=== PATIENT | male | born 1950 | race Caucasian/White ===

== ENCOUNTER 2017-02-12 07:38 | Outpatient (CLI) | payer MEDICARE, OTHER ==
[2017-02-12 13:53] LABS: ALBUMIN/GLOBULIN RATIO 1.3 (1.0-2.2); CALCIUM 9.5 mg/dL (8.5-10.3); CREATININE 0.9 mg/dL (0.6-1.2); TOTAL PROTEIN 7.1 g/dL (6.7-8.2)
== END 2017-02-12 07:39 | disposition home or self-care (01) ==
LOC: LAB.WCP 07:38
PROVIDERS: ATTEND Family Medicine
DX: K21.9 Gastro-esophageal reflux disease without esophagitis (principal)
CPT/HCPCS: 36415; 80053; G0103; 84153

== ENCOUNTER 2017-12-30 13:09 | Emergency (ER) | payer MEDICARE, OTHER ==
[2017-12-30 13:30] VITALS: BP 132/81
--- NOTE | 2017-12-30 14:25 | XRAY Report ---
EXAM: RIGHT ANKLE RADIOGRAPHY EXAM DATE: 12/30/2017 02:02 PM. CLINICAL HISTORY: Trauma, pain. COMPARISON: None. TECHNIQUE: 3 views. FINDINGS: Bones: Nondisplaced slightly oblique fracture of lateral malleolus. Otherwise unremarkable. Joints: Symmetrical mortise. Small joint effusion. Soft Tissues: Prominent soft tissue swelling over lateral malleolus. IMPRESSION: Nondisplaced lateral malleolus fracture. [facility] Referring Provider Line: [phone] SITE ID: [id number]
--- NOTE | 2017-12-30 14:25 | XRAY Preliminary Report ---
Exam: XR ANKLE 3 VIEW RT IMPRESSION: Nondisplaced lateral malleolus fracture. [facility] SITE ID: [id number]
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
[2017-12-30] MEDS ORDERED: IBUPROFEN 600 MG TABLET PO STA (15:24)
[2017-12-30] MEDS ORDERED: HYDROcod/ACETAM 5/325 MG TABLET PO STA (15:24)
[2017-12-30] MEDS ORDERED: TETANUS/DIPHTHERIA/PERTUSSIS 0.5 ML SYRINGE IM ONE (16:04)
[2017-12-30] MEDS ORDERED: BACITRACIN OINT TOP ONE (16:07)
== END 2017-12-30 17:04 | disposition home or self-care (01) ==
LOC: ED 13:09
DX: S82.64XA Nondisplaced fracture of lateral malleolus of right fibula, initial encounter for closed fracture (principal); W20.8XXA Other cause of strike by thrown, projected or falling object, initial encounter; Y93.I9 Activity, other involving external motion; Y92.488 Other paved roadways as the place of occurrence of the external cause; N40.0 Benign prostatic hyperplasia without lower urinary tract symptoms; Z23 Encounter for immunization
CPT/HCPCS: 73610; 90471; 90715; 99283; A9270

== ENCOUNTER 2019-08-28 16:24 | Outpatient (CLI) | payer MEDICARE, OTHER ==
[2019-08-28] MEDS ORDERED: IOVERSOL 320 100 ML VIAL IVP ONE ×2 (16:37→18:47)
[2019-08-28] MEDS ORDERED: IOVERSOL 320 50 ML VIAL ONE (16:37)
[2019-08-28 16:49] LABS: BASOPHILS # (AUTO) 0.1 10^3/uL (0.0-0.1); EOSINOPHILS # (AUTO) 0.2 10^3/uL (0.0-0.7); EOSINOPHILS % (AUTO) 2.9 %; HGB - HEMOGLOBIN 14.3 g/dL (14.0-18.0); LYMPHOCYTES # (AUTO) 1.7 10^3/uL (1.5-3.5); LYMPHOCYTES % (AUTO) 24.2 %; MEAN CORPUSCULAR HGB CONC 33.9 g/dL (32.0-36.0); MEAN CORPUSCULAR VOLUME 85.6 fL (80.0-94.0); MEAN PLATELET VOLUME 11.1 fL (7.4-11.4); MONOCYTES # (AUTO) 0.5 10^3/uL (0.0-1.0); MONOCYTES % (AUTO) 7.6 %; NEUTROPHILS # (AUTO) 4.4 10^3/uL (1.5-6.6); NEUTROPHILS % (AUTO) 63.9 %; PLT - PLATELET COUNT 202 10^3/uL (130-450); RED BLOOD COUNT 4.93 10^6/uL (4.70-6.10); RED CELL DISTRIBUTION WIDTH 15.3 % (12.0-15.0); WHITE BLOOD COUNT 6.9 x10^3/uL (4.8-10.8)
[2019-08-28 17:01] LABS: ALBUMIN 3.9 g/dL (3.2-5.5); ALBUMIN/GLOBULIN RATIO 1.1 (1.0-2.2); BILIRUBIN,TOTAL 7.7 mg/dL (0.2-1.0); CALCIUM 9.4 mg/dL (8.5-10.3); CREATININE 0.7 mg/dL (0.6-1.2); TOTAL PROTEIN 7.3 g/dL (6.7-8.2)
[2019-08-28] MEDS ORDERED: IOVERSOL 320 50 ML VIAL PO ONE (18:47)
--- NOTE | 2019-08-28 19:51 | CT Report ---
Reason: OBSTRUCTIVE JAUNDICE Procedure Date: 08/28/2019 Accession Number: [id number] / [id number] Procedure: CT - Abdomen/Pelvis W CPT Code: Final Report FULL RESULT: EXAM: CT ABDOMEN AND PELVIS EXAM DATE: 08/28/2019 06:06 PM. CLINICAL HISTORY: OBSTRUCTIVE JAUNDICE. COMPARISONS: ABDOMEN/PELVIS W/WO 12/19/2013 3:01 PM. TECHNIQUE: Routine helical CT imaging was performed through the abdomen and pelvis. IV contrast: OPTI 320 100ML. Enteric contrast: No. Reconstructions: Coronal and sagittal. In accordance with CT protocol optimization, one or more of the following dose reduction techniques were utilized for this exam: automated exposure control, adjustment of mA and/or KV based on patient size, or use of iterative reconstructive technique. FINDINGS: ABDOMEN: Lung Bases: Incompletely included lower lungs are grossly clear. Heart size is within normal limits. No basilar effusions. Liver: Unremarkable. Spleen: Unremarkable. Gallbladder/Bile Ducts/pancreas: Gallbladder is distended. New common bile duct dilatation to 1.3 cm. Intrahepatic ductal dilatation. Possible 2.9 x 1.5 cm hypoenhancing soft tissue structure at the lateral pancreatic head in the region of the ampulla (/33). No pancreatic ductal dilatation. Adrenal Glands: Unremarkable. Kidneys: No mass, calculi, or hydronephrosis. Bilateral renal cysts are present. Peritoneum/Mesentery/Bowel: No free fluid, free air, or collection. No intestinal obstruction or inflammation. Colonic diverticulosis present. The appendix is within normal limits. Lymph nodes: No mesenteric, periportal, or retroperitoneal lymphadenopathy. Vasculature: Abdominal aorta is nonaneurysmal. Portal vein is patent. Hepatic veins are patent. PELVIS: The bladder is unremarkable for the degree of distention. Changes of prior left inguinal hernia repair. Prostate is present. Prostate appears smaller than the prior exam. No pelvic lymphadenopathy. Bones: No suspicious osseous lesions. IMPRESSION: New intra-and extrahepatic biliary ductal dilatation and gallbladder distention. No pancreatic ductal dilatation. Question of a soft tissue lesion in the region of the ampulla/lateral pancreatic head. Recommend consideration of direct visualization/EUS and sampling. [facility] The call report notification system was initiated by Dr. Bennie Jean at 07:38 PM on 08/28/2019. The above call report findings were discussed with SYL Braun by Dr. Bennie Jean at 07:51 PM on 08/28/2019.
== END 2019-08-28 16:25 | disposition home or self-care (01) ==
LOC: DI 16:24
PROVIDERS: ATTEND Family Medicine
DX: K83.1 Obstruction of bile duct (principal); K83.9 Disease of biliary tract, unspecified; K82.8 Other specified diseases of gallbladder
CPT/HCPCS: 36415; 74177; 80053; 82150; 83690; 84443; 85025; Q9967

== ENCOUNTER 2019-09-02 08:00 | Outpatient (CLI) | payer MEDICARE, OTHER ==
[2019-09-02 12:41] LABS: BASOPHILS # (AUTO) 0.1 10^3/uL (0.0-0.1); BASOPHILS % (AUTO) 1.6 %; EOSINOPHILS # (AUTO) 0.6 10^3/uL (0.0-0.7); EOSINOPHILS % (AUTO) 8.9 %; HGB - HEMOGLOBIN 13.6 g/dL (14.0-18.0); LYMPHOCYTES # (AUTO) 1.8 10^3/uL (1.5-3.5); LYMPHOCYTES % (AUTO) 27.8 %; MEAN CORPUSCULAR HEMOGLOBIN 29.2 pg (27.0-31.0); MEAN CORPUSCULAR VOLUME 85.8 fL (80.0-94.0); MEAN PLATELET VOLUME 12.4 fL (7.4-11.4); MONOCYTES # (AUTO) 0.5 10^3/uL (0.0-1.0); MONOCYTES % (AUTO) 7.4 %; NEUTROPHILS # (AUTO) 3.4 10^3/uL (1.5-6.6); NEUTROPHILS % (AUTO) 54.1 %; PLT - PLATELET COUNT 215 10^3/uL (130-450); RED BLOOD COUNT 4.66 10^6/uL (4.70-6.10); RED CELL DISTRIBUTION WIDTH 16.7 % (12.0-15.0); WHITE BLOOD COUNT 6.3 x10^3/uL (4.8-10.8)
[2019-09-02 13:40] LABS: ALBUMIN 3.5 g/dL (3.2-5.5); BILIRUBIN,TOTAL 11.9 mg/dL (0.2-1.0); CALCIUM 9.6 mg/dL (8.5-10.3); CREATININE 0.6 mg/dL (0.6-1.2); TOTAL PROTEIN 6.9 g/dL (6.7-8.2)
== END 2019-09-02 23:59 | disposition home or self-care (01) ==
LOC: LAB.WCP 08:00
PROVIDERS: ATTEND Family Medicine
DX: K83.1 Obstruction of bile duct (principal)
CPT/HCPCS: 36415; 80053; 82150; 83690; 84443; 85025

== ENCOUNTER 2021-03-08 18:58 | Emergency (ER) | payer MEDICARE, OTHER ==
[2021-03-08 19:06] VITALS: BP 172/84
[2021-03-08] MEDS ORDERED: BACITRACIN ZINC OINT 1 PACKET TOP STA (20:09)
--- NOTE | 2021-03-08 20:11 | ED Physician Documentation ---
History of Present Illness - Stated complaint Stated Complaint: RT FINGER LAC/RED - Chief complaint Chief Complaint: Laceration - Additonal information Additional information: 70-year-old male who is undergoing chemotherapy for stage IV pancreatic cancer presents to the emergency department for a right thumb laceration. He had a very minor laceration when working with a metal hinge. He is concerned because he is immunocompromised and had some mild swelling and was concerned he may have infection. Last tetanus 2018. Review of Systems Constitutional: denies: Fever, Chills Eyes: reports: Reviewed and negative Nose: reports: Reviewed and negative Throat: reports: Reviewed and negative Cardiac: reports: Reviewed and negative Respiratory: reports: Reviewed and negative GI: reports: Reviewed and negative : reports: Reviewed and negative Skin: reports: Laceration (s) PD PAST MEDICAL HISTORY - Past Medical History Cardiovascular: None Respiratory: Sleep apnea Endocrine/Autoimmune: None GI: None : Benign prostate hypertrophy, Frequency HEENT: None Psych: None Musculoskeletal: None Derm: None - Past Surgical History Past Surgical History: Yes General: Other HEENT: Tonsil/Adenoidectomy - Present Medications Home Medications: Ambulatory Orders Medication Instructions Recorded Confirmed Ascorbic Acid [Vitamin C] 1,000 mg PO DAILY 07/16/14 12/16/19 Cholecalciferol (Vitamin D3) 2,000 unit PO DAILY 07/16/14 12/16/19 [Vitamin D] Multivitamin [Multivitamins] 1 each PO DAILY 07/16/14 12/16/19 Finasteride 10 mg PO DAILY 12/30/17 12/16/19 HYDROcod/ACETAM 5/325 [[place] 5/325] 1 tab PO Q6H PRN #15 tablet 12/30/17 12/16/19 - Allergies Allergies/Adverse Reactions: Allergies Allergy/AdvReac Type Severity Reaction Status Date / Time No Known Drug Allergies Allergy Verified 03/08/21 19:03 - Social History Does the pt smoke?: No Smoking Status: Never smoker Does the pt drink ETOH?: Yes Does the pt have substance abuse?: No - Immunizations Immunizations are current?: Yes - POLST Patient has POLST: No PD ED PE EXPANDED - General General: Alert, No acute distress - Extremities Extremities: Right finger(s) (Superficial 0.5 cm laceration radial side right thumb. Very small amount of minor surrounding erythema without induration. No significant tenderness elicited. Normal function of movement of the thumb.) Results - Vitals Vitals: Vital Signs - 24 hr 03/08/21 19:03 Temperature 36.7 C Heart Rate 67 Respiratory 18 Rate Blood Pressure 172/84 H O2 Saturation 100 Oxygen O2 Source Room air PD MEDICAL DECISION MAKING - ED course Complexity details: d/w patient ED course: 70-year-old male who is immunocompromised on chemotherapy presents the emergency department for evaluation of a superficial laceration on the right thumb. The laceration itself is very small and would not benefit from primary closure. Patient is concerned because he is immune compromised and the small amount of redness surrounding it has some concerned that he could have an infection. Given that this wound was just today my suspicion for acute infection is very low. I do recommend antibiotic ointment and warm compress on the thumb. Emergent return precautions were discussed for worsening symptoms. At that point antibiotics would be started. His tetanus was not updated today as it was last administered in 2018. Departure - Departure Disposition: 01 Home, Self Care Clinical Impression: Finger laceration Qualifiers: Encounter type: initial encounter Finger: thumb Damage to nail status: without damage Foreign body presence: without foreign body Laterality: right Qualified Code(s): S61.011A - Laceration without foreign body of right thumb without damage to nail, initial encounter Comments: Brent your tetanus was last given 2 in 2018. We do not get need to give it today. You do have a very simple laceration that does not need repair on the thumb. This time it is mildly inflamed but I do not think it is infected. Please place a warm compress on the thumb for 10 minutes 3 times a day. This will deliver good blood flow to the wound and can help kill any bacteria. I do recommend that you place an antibiotic ointment such as bacitracin, Neosporin or triple antibiotic ointment on the laceration 2-3 times a day. If you develop thumb swelling, have increased pain, milky drainage red streaking or any concerns of infection please return to the ER for a second look.
== END 2021-03-08 20:20 | disposition home or self-care (01) ==
LOC: ED 18:58
DX: S61.011A Laceration without foreign body of right thumb without damage to nail, initial encounter (principal); W26.8XXA Contact with other sharp object(s), not elsewhere classified, initial encounter; C25.9 Malignant neoplasm of pancreas, unspecified; K86.81 Exocrine pancreatic insufficiency; D84.821 Immunodeficiency due to drugs; T45.1X5A Adverse effect of antineoplastic and immunosuppressive drugs, initial encounter
CPT/HCPCS: 99282; A9270

== ENCOUNTER 2021-05-14 09:29 | Emergency (ER) | payer MEDICARE, OTHER ==
[2021-05-14 09:43] VITALS: BP 126/78
--- NOTE | 2021-05-14 09:46 | ED Physician Documentation ---
PD HPI Fall - Stated complaint Stated Complaint: RIB PX, S/P FALL - Chief complaint Chief Complaint: General - History obtained from History obtained from: Patient - History of Present Illness Mechanism of injury: Tripped Fall distance: Standing position Where injury occurred: Other (in [place], while on a trip in [employer] [facility], tripped and struck right lateral lower ribs.) Timing - onset: How many weeks ago (3) Injury(ies) location: Chest Associated symptoms: Dyspnea (pain with breathing and dyspnea. Has had now cough the past several days which is causing worse pain.). No: LOC, AMS Worsens with: Movement, Other (coughing and deep breathing.) Similar symptoms before: Has not had sx before Recently seen: Not recently seen (he was on trip in [place] and has returned back to [facility] just few days ago.) Review of Systems Constitutional: denies: Fever, Chills Nose: denies: Rhinorrhea / runny nose, Congestion Throat: denies: Sore throat Respiratory: reports: Dyspnea, Cough (for several days) GI: denies: Abdominal Pain, Nausea, Vomiting, Diarrhea Skin: denies: Abrasion (s), Laceration (s) Musculoskeletal: denies: Neck pain, Back pain Neurologic: denies: Focal weakness, Numbness, Near syncope PD PAST MEDICAL HISTORY - Past Medical History Cardiovascular: None Respiratory: Sleep apnea Neuro: None Endocrine/Autoimmune: None GI: None : Benign prostate hypertrophy, Frequency HEENT: None Psych: None Musculoskeletal: None Derm: None - Past Surgical History Past Surgical History: Yes General: Other HEENT: Tonsil/Adenoidectomy - Present Medications Home Medications: Ambulatory Orders Medication Instructions Recorded Confirmed Ascorbic Acid [Vitamin C] 1,000 mg PO DAILY 07/16/14 12/16/19 Cholecalciferol (Vitamin D3) 2,000 unit PO DAILY 07/16/14 12/16/19 [Vitamin D] Multivitamin [Multivitamins] 1 each PO DAILY 07/16/14 12/16/19 Finasteride 10 mg PO DAILY 12/30/17 12/16/19 HYDROcod/ACETAM 5/325 [[place] 5/325] 1 tab PO Q6H PRN #15 tablet 12/30/17 12/16/19 Albuterol Sulf [Ventolin Hfa 2 - 3 puffs INH Q4HR PRN #1 inhaler 05/14/21 Inhaler] Amoxicillin 500 mg PO TID #21 cap 05/14/21 Benzonatate [Tessalon] 100 mg PO TID PRN #20 cap 05/14/21 HYDROcod/ACETAM 5/325 [[place] 5/325] 1 ea PO Q6H PRN #20 tablet 05/14/21 - Allergies Allergies/Adverse Reactions: Allergies Allergy/AdvReac Type Severity Reaction Status Date / Time No Known Drug Allergies Allergy Verified 03/08/21 19:03 - Social History Does the pt smoke?: No Smoking Status: Never smoker Does the pt drink ETOH?: Yes Does the pt have substance abuse?: No - Immunizations Immunizations are current?: Yes - POLST Patient has POLST: No PD ED PE NORMAL - Vitals Vital signs reviewed: Yes - General General: Alert and oriented X 3, Well developed/nourished, Other (appears uncomfortable with movement and breathing. Winced in pain with coughing. ) - Neck Neck: Supple, no meningeal sign, No adenopathy - Cardiac Cardiac: RRR, No murmur - Respiratory Respiratory: Other (right lateral lower ribs with tender to palpation. No crepitance. ). No: Clear bilaterally (some decreased sounds right base. Hint of wheezing with breathing. ) - Abdomen Abdomen: Soft, Non tender - Back Back: No CVA TTP, No spinal TTP - Derm Derm: Normal color, Warm and dry Results - Vitals Vitals: Oxygen O2 Source Room air - Rads (name of study) ribs with chest Radiology: Prelim report reviewed (minimally displaced right 10th/11th rib fractures. Small right effusion. No PTX.), See rad report PD MEDICAL DECISION MAKING - ED course Complexity details: reviewed results, considered differential, d/w patient Departure - Departure Disposition: 01 Home, Self Care Clinical Impression: Pleural effusion, Cough Rib fractures Qualifiers: Encounter type: initial encounter Fracture type: closed Laterality: right Qualified Code(s): S22.41XA - Multiple fractures of ribs, right side, initial encounter for closed fracture Condition: Stable Record reviewed to determine appropriate education?: Yes Instructions: ED Fx Rib Follow-Up: Liliane Sellers DO [Primary Care Provider] - Ceasar Zuniga MD [Physician No Access] - Prescriptions: Albuterol Sulf [Ventolin Hfa Inhaler] 2 - 3 puffs INH Q4HR PRN #1 inhaler PRN Reason: Shortness Of Air/Wheezing Amoxicillin 500 mg PO TID #21 cap HYDROcod/ACETAM 5/325 [[place] 5/325] 1 ea PO Q6H PRN #20 tablet PRN Reason: Pain Benzonatate [Tessalon] 100 mg PO TID PRN #20 cap PRN Reason: Cough Comments: You have 2 broken ribs on the right side, the 10th and the 11th. They are minimally displaced. There is a small amount of fluid around the corner of the lung suggestive of inflammation. Concern would be for infection and also poor aeration. We will treat this with an inhaler albuterol 2 to 3 puffs 4 times a day to help improve lung expansion. Amoxicillin antibiotic 3 times a day for a week for concern of infection. Tessalon if needed for cough and throat irritation. Use Tylenol 500 mg 4 times a day regularly for pain or hydrocodone/acetaminophen every 6 hours if needed for worse pain. Recheck with your primary care in the next week or so. Follow-up with oncology tomorrow as planned. I transmitted the prescriptions to [facility] pharmacy. Discharge Date/Time: 05/14/21 11:43
[2021-05-14] MEDS ORDERED: IBUPROFEN 400 MG TABLET PO STA (10:01)
[2021-05-14] MEDS ORDERED: oxyCODONE 5 MG TABLET PO STA (10:01)
--- NOTE | 2021-05-14 10:36 | XRAY Report ---
PROCEDURE: Ribs w/PA Chest RT INDICATIONS: fall, struck right lateral ribs 3 wks ago TECHNIQUE: 2 views of the right ribs were acquired, along with a single view chest. COMPARISON: None. FINDINGS: Surgical changes and devices: A left chest port is seen with catheter tip projecting over the superio r vena cava. A probable biliary catheter is seen in the right upper quadrant. Bones and chest wall: Minimally displaced fractures of the right lateral 10th and 11th ribs are seen on oblique images. No suspicious bony lesions. Overlying soft tissues appear unremarkable. Lungs and pleura: No pneumothorax. A small right pleural effusion is seen. Possible trace left pleura l effusion or pleural thickening. There is atelectasis at the lung bases. Mediastinum: Mediastinal contours appear normal. Heart size is normal. IMPRESSION: Minimally displaced fractures of the lateral right 10th and 11th ribs. Small right pleural effusion. No pneumothorax. Reviewed by: Jhon Clark MD on 05/14/2021 10:35 AM PDT Approved by: Jhon Clark MD on 05/14/2021 10:35 AM PDT Station ID: [id number]
== END 2021-05-14 11:43 | disposition home or self-care (01) ==
LOC: ED 09:29
DX: S22.41XA Multiple fractures of ribs, right side, initial encounter for closed fracture (principal); W01.0XXA Fall on same level from slipping, tripping and stumbling without subsequent striking against object, initial encounter; Y92.9 Unspecified place or not applicable; J90 Pleural effusion, not elsewhere classified
CPT/HCPCS: 71101; 99283; 99284; A9270

== ENCOUNTER 2021-06-04 17:47 | Outpatient (CLI) | payer MEDICARE, OTHER | END 2021-06-04 17:48 | disposition other institution (70) | LOC: EMS 17:47 | DX: K92.0 Hematemesis (principal); R46.4 Slowness and poor responsiveness | CPT/HCPCS: A0425; A0427 ==